=== PATIENT | male | born 1955 | race African-American/Black ===

== ENCOUNTER 2019-10-22 10:30 | Day surgery (SDC) | payer OTHER ==
[~2019-10-22 10:30] MED LIST: AMLO10TA8 PO; AMOX500C PO; ASPI-630 PO; ATOR40TA59 PO; BACITRACIN 50,000 UNIT in IV NORMAL SALINE 500ML BAG 500 ML IRR ONE; BISA10SU4 RC; BUPIVACAINE-EPI 0.5%-1:200000 MPF 30 ML VIAL. INJ ONE; CARV12.511 PO; CHLORHEXIDINE 0.12% 15 ML MOUTHWASH. ONE; CHLORHEXIDINE 0.12% 15 ML MOUTHWASH. SWSP ONE; CHOL100013 PO; CLOP75TA PO; DIAZ5TAB4 PO; DOCU100C28 PO; ENOX40DI SQ; GABA-585 PO; GELATIN SPONGE SIZE 100. ONE; HYDR-2759 PO; HYDR-2765 PO; HYDR25TA PO; HYDROmorphone 2 MG/ML VIAL IV PRN; INSU100I11 SQ; INSU100I13 SQ; INSU100I17 SQ; INSULIN LISPRO 100 UNIT/ML 3ML VIAL for OP,RR ONLY. SQ PRN; IPRA3AMP29 NEB; IV RINGERS,LACTATED 1000ML 1,000 ML IV SCH; LEVO125T5 PO; LEVO50TA5 PO; LIDO700A21 TP; LIDOCAINE 1% PF 2 ML VIAL. ID PRN; LISI-130 PO; LORA2ORA7 PO; MORP20SO PO; MORPHINE SULFATE 2 MG/ML VIAL. IV PRN; ONDA8TAB9 PO; ONDANSETRON PF 4 MG/2 ML VIAL. IV PRN; OXYC20OR PO; PALI6TAB3 PO; PRAZ1CAP2 PO; PROCHLORPERAZINE 10 MG/2 ML VIAL. IV PRN; RANI150T2 PO; fentaNYL PF VIAL 100 MCG/2 ML VIAL IV PRN
[2019-10-22] MEDS ORDERED: PROPOFOL 20 ML IV ONE (12:02)
[2019-10-22] MEDS ORDERED: SUCCINYLCHOLINE 200 MG/10 ML VIAL. ONE (12:03)
[2019-10-22] MEDS ORDERED: fentaNYL PF VIAL 100 MCG/2 ML VIAL ONE ×2 (12:03→12:04)
[2019-10-22] MEDS ORDERED: ONDANSETRON PF 4 MG/2 ML VIAL. ONE (12:17)
[2019-10-22] MEDS ORDERED: PHENYLEPHRINE 10 MG/ML VIAL. ONE (12:17)
[2019-10-22] MEDS ORDERED: ePHEDrine PF IN SALINE 50 MG/10 ML SYRINGE. IV ONE (13:50)
[2019-10-22] MEDS ORDERED: GLYCOPYRROLATE 1 MG/5 ML VIAL. ONE (13:57)
[2019-10-22] MEDS ORDERED: NEOSTIGMINE METHYLSULFATE 5 MG/5 ML SYRINGE. ONE (13:57)
--- NOTE | 2019-10-22 14:29 | PDOC4 ---
OPERATIVE NOTE Date: Date: Oct 22, 2019 Pre-Op Diagnosis: Schizophrenia Heart failure caries, non restorable teeth Post-Op Diagnosis: Schizophrenia Heart failure caries, non restorable teeth Procedure Performed: surgical removal of all remaining teeth # 3,4,5,6,7,8,9,10,11 ,12,13,14,15,18,22,23,24,25,26,27,28,30 4 Quadrants of alveoloplasty Surgeon: kerry Anesthesia Type: jalyn locke Blood Loss: 100 Specimans Obtained: teeth disposed of in OR Findings: see dictation Complications: none noted at time of surgery Operative Note: see МАРИНА Thomas DMD Oct 22, 2019 14:29
[2019-10-22] MEDS ORDERED: HYDROcodone/APAP 5/325MG 1 TAB TABLET PO ONE (15:15)
[2019-10-22 16:07] VITALS: BP 110/70
--- NOTE | 2019-10-22 18:53 | OP ---
DATE OF SURGERY: 10/22/2019 OPERATING SERVICE: director of group counseling program. ATTENDING PHYSICIAN: Jarad Farley DMD PREOPERATIVE DIAGNOSES: 1. Schizophrenia. 2. High blood pressure. 3. Heart failure. 4. Caries, nonrestorable dentition, teeth numbers 3, 4, 5, 6, 7, 8, 9, 10, 11, 12, 13, 14, 15, 18, 22, 23, 24, 25, 26, 27, 28, and 30. POSTOPERATIVE DIAGNOSES: 1. Schizophrenia. 2. High blood pressure. 3. Heart failure. 4. Caries, nonrestorable dentition, teeth numbers 3, 4, 5, 6, 7, 8, 9, 10, 11, 12, 13, 14, 15, 18, 22, 23, 24, 25, 26, 27, 28, and 30. PROCEDURES PERFORMED: Surgical removal of aforementioned teeth numbers 3, 4, 5, 6, 7, 8, 9, 10, 11, 12, 13, 14, 15, 18, 22, 23, 24, 25, 26, 27, 28, 30. Also, 4 quadrants of alveoloplasty; upper right, upper left, lower right, and lower left. BRIEF HISTORY: The patient was referred to our clinic by the [facility]. He was in a long-term care facility, [facility]. He has some limited cooperation. He has some significant visual loss. 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 His behavior was somewhat erratic; however, he is nonviolent in our interaction. He is not able to provide appropriate dental care for himself and the majority of his teeth has large caries and have broken off and are nonrestorable. In light of his heart failure, schizophrenia, and deteriorating health, his nonrestorable dentition pose a significant risk for his overall health and are likely to continue to cause him pain. He had reported some episodes of pain to the facility and therefore was requested that we would manage this for him. He was referred to our clinic. A full history and physical was performed in our clinic. Medical consent was obtained through his sister, who is his medical legal guardian, and a designated guardianship. She is in [place], I believe. The discussion of the surgery was thoroughly reviewed with the patient and the sister. Verbal consent was taken over the phone from the sister and the patient was affable with our plan. ESTIMATED BLOOD LOSS: 100 mL. SPECIMEN SENT: None. All the teeth were disposed off in the OR. DRAINS PLACED: None. COMPLICATIONS: None noted at the time of surgery. OPERATIVE DESCRIPTION: After the history and physical was updated in the preoperative holding area, the patient was transported by the Anesthesia Service to the operating suite, placed in the supine position. General anesthesia was introduced. The patient was intubated without complication and the tube was secured to the left face. The patient was then prepped and draped in a normal sterile fashion. Pressure points were checked at the arms, legs, heels, and calves. The surgery began with the timeout, all perioperative staff were in agreeance. Moistened throat pack was placed in the oropharynx. A bite block was positioned and this was utilized to secure the tube to the left commissure of the mouth. Surgery began with administration of 22 mL of local anesthetic, 0.5% bupivacaine, 1:200,000 epinephrine, an additional 8 mL for a total of 30 mL were administered approximately 30 minutes into the procedure. The surgery began in the upper right quadrant with a 15 blade and a full-thickness mucoperiosteal flap was reflected buccally. This was continued in the lower right, upper left, and lower left quadrants with a 15 blade and full-thickness mucoperiosteal flaps. These teeth were luxated, elevated, and extracted with hand instruments and rotary instrumentations were necessary. The teeth were extracted, the care was taken to curette in each extraction site and remove with copious amounts of periapical granulomatous tissue. The alveoloplasty was performed with hand instruments to remove all bony undercuts. [place], bone file, surgical curette, and copious normal sterile saline were employed to perform appropriate alveoloplasty. The sites were packed with Gelfoam and oversewn with running locked interrupted chromic gut sutures to assist with hemostasis. Hemostasis was achieved. All 4 quadrants were closed without complication. The oral cavity was then lavaged and suctioned. The moistened throat pack was removed. Then, an OG was passed and the stomach was decompressed. The patient was then returned to the care of Anesthesia, where he was awakened and extubated without complication and transported to the PACU in a stable condition. JARAD FARLEY DMD DR: Diane JOB#: [id number] / [id number]
== END 2019-10-22 16:10 | disposition home or self-care (01) ==
LOC: SURG 10:30
PROVIDERS: ATTEND Dentist Oral and Maxillofacial Surgery
DX: K02.9 Dental caries, unspecified (principal); F20.9 Schizophrenia, unspecified; I10 Essential (primary) hypertension; E78.00 Pure hypercholesterolemia, unspecified; I25.10 Atherosclerotic heart disease of native coronary artery without angina pectoris; G47.30 Sleep apnea, unspecified; K21.9 Gastro-esophageal reflux disease without esophagitis; E11.9 Type 2 diabetes mellitus without complications; F41.9 Anxiety disorder, unspecified; F32.9 Major depressive disorder, single episode, unspecified; E66.9 Obesity, unspecified; Z68.32 Body mass index [BMI] 32.0-32.9, adult; Z79.84 Long term (current) use of oral hypoglycemic drugs
CPT/HCPCS: 41874; 82962; A7015; J0171; J0330; J0696; J2405; J2704; J2710; J3010; J3490; J7040